=== PATIENT | male | born 1945 | race Caucasian/White ===

== ENCOUNTER 2018-05-01 05:56 | Day surgery (SDC) | payer MEDICARE, BC ==
[2018-05-01] MEDS ORDERED: TRANEXAMIC ACID 1,000 MG/10 ML ML IV ONE ×2 (05:57)
[2018-05-01] MEDS ORDERED: FENTANYL PF 100MCG/2ML VIAL IV ONE (05:57)
[2018-05-01] MEDS ORDERED: DEXAMETHASONE 4 MG/ML 1ML VIAL IVP ONE (05:57)
[2018-05-01] MEDS ORDERED: MIDAZOLAM HCL 2MG/2ML VIAL IV ONE (05:57)
[2018-05-01] MEDS ORDERED: LIDOCAINE 1% MDV (10MG/ML) 20ML VIAL SQ ONE (05:57)
[2018-05-01] MEDS ORDERED: ROPIVACAINE HCL (NAROPIN) /PF 5MG/ML 20ML VIAL IV ONE (05:57)
[2018-05-01] MEDS ORDERED: EPHEDRINE SULFATE 50 MG/ML ML IV ONE (05:57)
[2018-05-01] MEDS ORDERED: BUPIVACAINE 0.5% W/EPI MPF 30 ML VIAL IVP ONE ×2 (05:57)
[2018-05-01] MEDS ORDERED: BUPIVACAINE LIPOSOME 266MG/20ML VIAL IV ONE (05:57)
[2018-05-01] MEDS ORDERED: PROPOFOL 10 MG/ML VIAL IV ONE (05:57)
[2018-05-01] MEDS ORDERED: VANCOMYCIN HCL 1 GM VIAL IVPB ONE ×2 (05:57)
[2018-05-01] MEDS ORDERED: CELECOXIB 100 MG CAPSULE PO ONE (06:00)
[2018-05-01] MEDS ORDERED: FAMOTIDINE 20MG TABLET PO ONE (06:00)
[2018-05-01] MEDS ORDERED: METOCLOPRAMIDE 10 MG TABLET PO ONE (06:00)
[2018-05-01] MEDS ORDERED: VANCOMYCIN HCL 1,000 MG in DEXTROSE 5 % IN WATER 250 ML IVPB ONE ×2 (06:00)
[2018-05-01] MEDS ORDERED: ACETAMINOPHEN 1,000 MG/100 ML BTL IV ONE (06:00)
[2018-05-01] MEDS ORDERED: MECLIZINE 25 MG TABLET PO ONE (06:00)
[2018-05-01 07:22] LABS: ABO GROUP O; ANTIBODY SCREEN NEGATIVE (NEGATIVE); RH TYPE POSITIVE
[2018-05-01] MEDS ORDERED: ONDANSETRON 4 MG ODT TABLET SL PRN (08:29)
[2018-05-01] MEDS ORDERED: MAGNESIUM HYDROXIDE 30 ML UDC PO PRN (08:29)
[2018-05-01] MEDS ORDERED: KETOROLAC 30 MG/ML VIAL IVP PRN ×2 (08:29)
[2018-05-01] MEDS ORDERED: PROMETHAZINE HCL 25 MG TABLET PO PRN (08:29)
[2018-05-01] MEDS ORDERED: DIPHENHYDRAMINE HCL 25 MG CAPSULE PO PRN (08:29)
[2018-05-01] MEDS ORDERED: ACETAMINOPHEN W/ CODEINE 300MG/30MG TABLET PO PRN ×2 (08:29)
[2018-05-01] MEDS ORDERED: NALOXONE 0.4 MG/1 ML VIAL IVP PRN (08:29)
[2018-05-01] MEDS ORDERED: TRAMADOL HCL 50 MG TABLET PO PRN ×2 (08:29)
[2018-05-01] MEDS ORDERED: ACETAMINOPHEN W/ CODEINE 300MG/60MG TABLET PO PRN ×2 (08:29)
[2018-05-01] MEDS ORDERED: BISACODYL 10 MG SUPP RC PRN (08:29)
[2018-05-01] MEDS ORDERED: ACETAMINOPHEN 325 MG TAB PO PRN (08:29)
[2018-05-01] MEDS ORDERED: HYDROCODONE/APAP 5/325MG TABLET PO PRN ×2 (08:29)
[2018-05-01] MEDS ORDERED: AL HYDROX/MAG HYDROX 30ML UD PO PRN (08:29)
[2018-05-01] MEDS ORDERED: HYDROCODONE/APAP 7.5/325MG TABLET PO PRN ×2 (08:29)
[2018-05-01] MEDS ORDERED: DEXTROSE 5 % AND 0.9 % NACL 1,000 ML IV PRN (08:29)
[2018-05-01] MEDS ORDERED: METOCLOPRAMIDE 10 MG TABLET PO PRN (08:29)
[2018-05-01] MEDS ORDERED: DOCUSATE SODIUM 100 MG CAPSULE PO SCH (10:00)
[2018-05-01] MEDS ORDERED: VANCOMYCIN HCL 500 MG in 0.9 % SODIUM CHLORIDE 100ML 100 ML IVPB SCH (11:00)
--- NOTE | 2018-05-01 14:16 | Rehab Evaluation ---
Patient Information - Patient Information Diagnosis: L OA Ordered Treatment: PT Evaluate and Treat Status: Initial Evaluation Surgery: Yes (L TKA) Date of Surgery: 05/01/18 Past Medical/Surgical Hx: PAST MEDICAL/SURGICAL HISTORY Past Surgical History l knee scope right shoulder replacement right knee scope sinus sx RTCR left c scopes I and D right knee x's 2 2012 PMH - Respiratory Hx Respiratory Disorders No PMH - Cardiovascular Hx Cardiovascular Disorders Yes Hx Abnormal EKG Yes: first degree block Exercise Tolerance Good PMH - Neuro Hx Neurological Disorders No PMH - GI Hx Gastrointestinal Disorders Yes Hx Gastroesophageal Reflux Yes: on meds good control PMH - Hx Genitourinary Disorders No PMH - Endocrine Hx Endocrine Disorders No PMH - Musculoskeletal Hx Musculoskeletal Disorders Yes Hx Arthritis Yes PMH - Psych Hx Psychiatric Problems Yes Hx Depression Yes: mild on meds PMH - Hematology/Oncology Hx Hematology/Oncology No Disorders Premorbid Status: Detail (Prior to surgery the patient was independent with all mobility.) Social History: Detail (The patient lives in a one story house with spouse with 3 steps at the enterance with one railing. The patient's bathroom is equipped with a walk in shower with a shower bench and an elevated toilet seat. The patient's bathroom has no grab bars. The patient has walker with wheels.) Precautions: [place], Fall, Other (WBAT on the L LE.) - Time With Patient Total Time Spent With Patient (Min): 30 Treatment Procedures: Detail (Initial Evaluation, gait training) Subjective Information - Subjective Information Per Patient (The patient had only minimal complaints L knee pain- level 0-3 pain using 0-10 pain scale.) Objective Data - Mental Status Patient Orientation: Oriented x3 - Visual Perception Appears within normal limits for therapeutic activities - ROM Not within normal limits (The patient's L knee AROM is limited as to be expected following surgery. All LE AROM is WNL.) - Strength/Tone Not within normal limits (The patient's L LE strength was not tested s/p surgery however is functional (the patient is able to complete a SLR.) The patient's R LE strength is 4+ to 5/5. Refer to OT note for UE strength.) - Bed Mobility Independent (The patient is independent with supine to and from sit transfers and scooting up in bed.) - Transfers Independent (The patient was independent with sit to and from stand transfer) - Balance Balance Sitting: Good Balance Standing: Good - Sensation Intact - Gait Detail (The patient was independent with ambulation with 2 wheeled walker WBAT on the L LE a distance of100 feet x 1. The patient ambulated on 3 stairs with the use of one railing and folded walker using proper technique with supervision for safety only.) Therapy Assessment - Therapy Assessment Detail (The patient was independent with bed mobility, transfers and ambulation on levels and stairs. The patient was independent with TKA HEP. The patient has met all inpatient PT goals and is to continue with Home PT.) Patient Education - Patient Education Teaching Topic: Exercise/Activity (The patient completed the following TKA exercises independently: heel slides, ankle pumps, quad sets, gluteal sets, hamstring sets, SLR.) Response: Return Demonstration Teaching Method: Demonstration, Handout Teaching Recipient: Patient Barriers To Learning: Age Related Problem List - Problem List Physical Therapy Problem List: Detail (Decreased L knee AROM and decreased L LE strength as to be expected following surgery.) Goals - Goals Physical Therapy Goals: The patient has completed all inpatient PT goals. Prognosis - Prognosis Good Plan - Plan Physical Therapy Plan: The patient has completed all inpatient PT goals and is discharged from inpatient PT. The patient is to continue with Home PT.
--- NOTE | 2018-05-01 16:46 | Rehab Evaluation ---
Patient Information - Patient Information Diagnosis: L OA Ordered Treatment: OT Evaluate and Treat Status: Initial Evaluation Surgery: Yes (L TKA) Date of Surgery: 05/01/18 Past Medical/Surgical Hx: PAST MEDICAL/SURGICAL HISTORY Past Surgical History l knee scope right shoulder replacement right knee scope sinus sx RTCR left c scopes I and D right knee x's 2012 PMH - Respiratory Hx Respiratory Disorders No PMH - Cardiovascular Hx Cardiovascular Disorders Yes Hx Abnormal EKG Yes: first degree block Exercise Tolerance Good PMH - Neuro Hx Neurological Disorders No PMH - GI Hx Gastrointestinal Disorders Yes Hx Gastroesophageal Reflux Yes: on meds good control PMH - Hx Genitourinary Disorders No PMH - Endocrine Hx Endocrine Disorders No PMH - Musculoskeletal Hx Musculoskeletal Disorders Yes Hx Arthritis Yes PMH - Psych Hx Psychiatric Problems Yes Hx Depression Yes: mild on meds PMH - Hematology/Oncology Hx Hematology/Oncology No Disorders Premorbid Status: Detail (Prior to surgery the patient was independent with all mobility and I/ADL's (including self care, driving, and yardwork).) Social History: Detail (The patient lives in a one story house with spouse with 3 steps at the enterance with one railing. The patient's bathroom is equipped with a walk in shower with a shower bench and hand held shower head, and an elevated toilet seat. The patient's bathroom has no grab bars. The patient has walker with wheels, and a long handled sponge at home.) Precautions: [place], Fall, Other (WBAT on the L LE.) - Time With Patient Total Time Spent With Patient (Min): 20 Treatment Procedures: Detail (OT EVAL [place]. Session was concluded with pt. supine in bed, call light within reach and spouse present.) Subjective Information - Subjective Information Per Patient (Hx of R shd complete replacement, L RTC sx, and [place]. CTS with no residual issues in function.) Objective Data - Pain Pain Present: Yes (LLE. Nursing staff administered pain meds during OT session.) - Mental Status Patient Orientation: Oriented x3 - Visual Perception Appears within normal limits for therapeutic activities - ROM Within normal limits (BUE WNL. R wrist ext lacking approx. 20-30 degrees, but pt. states is functional (no pain or difficulty with pushing up off of surfaces/ self-support).) - Strength/Tone Within normal limits (RUE is slightly weaker than LUE in general. LUE 5/5 all planes and RUE 4+/5.) - Coordination Appears within normal limits for therapeutic activities - Bed Mobility Independent (supine<>sit EOB) - Transfers Independent (sit<>stand from bed.) - Balance Balance Sitting: Good Balance Standing: Fair - Sensation Deficit (BUE CTS but does not effect function per pt. report.) - ADL's/IADL's Detail (Educ. provided in AE, adaptive dressing techniques, and adaptive strategies to build up walker/cane handles d/t CTS. Pt. demo. ability to dress Ind. (t-shirt, elastic waist shorts and socks). Socks were a struggle on L side , but pt. stated he will ask for assistance if needed.) Therapy Assessment - Therapy Assessment Detail (In-pt. OT services not recommended at this time. Pt. has a positive support system, with assistance at home if needed, and a good environmental set- up.) Patient Education - Patient Education Teaching Topic: Equipment Use, Exercise/Activity Response: Return Demonstration, Verbalize Understanding Teaching Method: Discussion Teaching Recipient: Patient, Significant Other () Barriers To Learning: None Problem List - Problem List Physical Therapy Problem List: Detail (Decreased L knee AROM and decreased L LE strength as to be expected following surgery.) Goals - Goals Physical Therapy Goals: The patient has completed all inpatient PT goals. Prognosis - Prognosis Good Plan - Plan Physical Therapy Plan: The patient has completed all inpatient PT goals and is discharged from inpatient PT. The patient is to continue with Home PT. Occupational Therapy Plan: D/C from in-pt. OT services at this time. Educ. was provided to call the rehab dept. if questions arise after returning home.
--- NOTE | 2018-05-02 17:55 | Operative Note ---
DATE OF SURGERY: 05/01/18 PREOPERATIVE DIAGNOSIS: END-STAGE LEFT KNEE ARTHROSIS. POSTOPERATIVE DIAGNOSIS: END-STAGE LEFT KNEE ARTHROSIS. OPERATION: LEFT TOTAL KNEE ARTHROPLASTY. SURGEON: BRITNEY BILLS MD ANESTHESIA: SPINAL. PIPE OR STEAM FITTER FURNACE INSTALLER: YANG PENG AND JEFF ALEXIS. COMPLICATIONS: NONE. BLOOD LOSS: MINIMAL. TOURNIQUET TIME: APPROXIMATELY 65 MINUTES. COMPONENTS PLACED: 2 grams of Vancomycin cement Dickey-Nephew Journey II Oxinium total knee arthroplasty system, size 7 femoral component, a size 7 tibial baseplate, 9 mm thick tibial poly insert, and 32 mm cemented patellar component. INDICATION FOR OPERATION: This is a 73-year-old male with end-stage knee arthrosis who failed extensive amounts of nonoperative treatment including multiple injections, Supartz series injections, anti-inflammatories. He has had knee arthroscopy and debridements and still had persistent pain and dysfunction ; resistant to any of those and he was scheduled for knee replacement. I explained the risks, benefits in detail for diagnosis and procedures including but not limited to infection, nerve injury, vessel injury, pain, numbness, tingling in the knee, periprosthetic fracture, need for resection, arthroplasty should components become infected or loosen, nerve injury, vessel injury, or blood clot, need for further procedures. All of his questions were answered. Rehab and healing course were outlined and he agreed to proceed. PROCEDURE: The patient was brought to the OR and placed in the supine position after spinal anesthesia induced and his left lower extremity and knee prepped and draped in sterile fashion. The left knee was prepped again with ChloraPrep, and draped. Intraoperative time-out was performed. Next, the leg was exsanguinated with an Esmarch. The knee was flexed and tourniquet inflated to 250 mmHg pressure. Next, the skin and subcutaneous was dissected down. Incised the capsule medially around the medial border of the patella to the tibial tubercle. Split the vastus medialis in line with its fibers and then everted the patella. Partially resected the retropatellar fat pad. Elevated the capsule subperiosteally medially. Brought in retractors and exposed the proximal femur nicely. He had a moderate amount of chondromalacia, grade 3, of the medial femoral condyle, chondromalacia. Next, drilled the intercondylar drill hole, inserted intramedullary guide ramin with a 6 degree cutting block, aligned distal femoral condyles and pinned it in the +2 mm position then cut the distal femoral condyles. Next, we placed a sizing jig on the distal femoral condyle and sized beyond a size 7 through the previously placed pinholes then placed the size 7, 5-in-1 cutting jig. We seated anteriorly so it would come out flush without notching the anterior cut. We cut that cut and it was a good cut then we pinned it to complete its fixation then cut the remainder of chamfer cuts. Next, placed a size 7 femoral component, seated it, pinned it in place and had a good fit. Removed osteophytes off the periphery, inserted the femoral resection collet, reamed out, and box osteotomed out with a cruciate bone block. Next, attention was turned to the tibia. Placed the axial alignment jig in the tibia, seated the spikes in the intertubercular groove two fingerbreadths distally off the anterior tibial tubercle, aligned it until we had tibial anatomic axis. We referenced for a 7 mm cut off the higher lateral plateau. We then pinned the provisional in place between the anterior and posterior pins. We then rechecked the alignment of the cutting jig with a drop ramin, centered until we had tibial anatomic axis, and then cross-pinned to complete fixation to cut the tibia. Next, removed osteophytes off the posterior femoral condyles using a curved osteotome. Checked the flexion and extension gaps and had symmetric flexion and extension gaps with a 9 mm thick poly insert. This allowed for 2-3 mm of varus valgus laxity in flexion and extension. Overall, alignment cuts in extension was in anatomic valgus orientation with alignment ramin centered on the hip joint and ankle joint. Next, we sized the tibial baseplate to be a size 7 and replaced all trial components. Held the knee in extension with alignment rods centered in the hip joint and ankle joint. Marked with electrocautery logan off the tibial baseplate. Next, we measured the patella. Set the cutting jig to allow for a 9 mm thick poly insert, set at 12, cut the patella and it was right on 12. Remeasured it and sized it to be a 32. We medialized as much as possible, drilled three peg holes, and placed the trial patellar components and fit nicely. We did a trial range of motion and mixed cement. The patella tracked nicely handsfree with full extension and flexion to 140-150 degrees with good symmetric flexion and extension gaps. Next, took the knee in flexion, exposed the proximal tibia, irrigated copiously. We seated the tibial baseplate with the previously placed electrocautery logan, pinned it in place, and reamed out and keel punched the keel hole. Next, we placed a bone plug in the femoral canal hole and we irrigated all bony surfaces copiously with pulse lavage and antibiotic solution. We changed gloves , brought in a clean sheet, pre-coated both surfaces and impacted down the tibial component and then the femoral component, and removed excess cement. We placed a trial tibial poly liner and held the knee in extension, and clamped down the patellar component until the cement hardened. Took the knee into flexion. We removed all trial tibial components, distracted the knee with bone hook and sponge, removed any excess cement off the edge of the components. Next, we injected our joint mixture, 0.5% Marcaine with Epinephrine, Tranexamic Acid and Exparel. With several sticks throughout the knee, deep capsule, mediolateral periosteum, out to the vas medialis and subcutaneous area. Next, we inserted real tibial poly insert verifying it was interlocked medially and laterally. Final range of motion revealed the same. We irrigated and closed the knee in flexion with a #2 quill suture the vastus medialis split and medial capsule. Closed the skin deep with 2-0 Vicryl. Injected the superficially with 0.5% Marcaine with Epinephrine subcutaneous skin. Next, we placed the ACTICOAT dressing on and a temporary dressing to be changed prior to discharge to the [facility] dressing system and discharge plan outpatient and follow-up in two weeks. cc: Dr. Whaley JOB NUMBER: [id number] MTDD
== END 2018-05-01 16:50 | disposition home health service (06) ==
LOC: SUR 05:56 → MEDSURG 11:02 → SUR 16:50
PROVIDERS: ATTEND Orthopaedic Surgery
DX: M17.12 Unilateral primary osteoarthritis, left knee (principal)
CPT/HCPCS: 86850; 86900; 86901; J3370; J7060